=== PATIENT | female | born 1955 | race Caucasian/White ===

== ENCOUNTER 2020-01-18 11:40 | Emergency (ER) | payer OTHER ==
[~2020-01-18] VITALS: Ht 152.4 cm; Wt 79.4 kg
[2020-01-18] MEDS ORDERED: MUCINEX DM ER1 EAC1 PO (11:57)
[2020-01-18] MEDS ORDERED: DECADRON6 MG PO (11:57)
[2020-01-18] MEDS ORDERED: SYMBICORT 16010.2 GM IH (11:57)
[2020-01-18] MEDS ORDERED: VITAMIN C1000 MG PO (11:57)
[2020-01-18] MEDS ORDERED: VITAMIN D3 COM1 EACH PO (11:57)
[2020-01-18] MEDS ORDERED: PEPCID AC20 MG PO (11:57)
[2020-01-18] MEDS ORDERED: ZINC50 M1 PO (11:57)
[2020-01-18] MEDS ORDERED: TESSALON PERLE100 M1 PO (11:57)
[2020-01-18] MEDS ORDERED: SALINE NOSE SPR45 ML (12:01)
== END 2020-01-18 12:20 | disposition home or self-care (01) ==
LOC: ER
DX: U07.1 COVID-19 (principal)

== ENCOUNTER 2020-07-31 13:26 | Outpatient (CLI) | payer OTHER ==
[~2020-07-31 13:26] MED LIST: DECADRON6 MG PO; MUCINEX DM ER1 EAC1 PO; PEPCID AC20 MG PO; SALINE NOSE SPR45 ML; SYMBICORT 16010.2 GM IH; TESSALON PERLE100 M1 PO; VITAMIN C1000 MG PO; VITAMIN D3 COM1 EACH PO; ZINC50 M1 PO
== END 2020-07-31 13:41 | disposition home or self-care (01) ==
LOC: SONOGRAMA 13:26
PROVIDERS: ATTEND Specialist
DX: N85.01 Benign endometrial hyperplasia (principal); N95.1 Menopausal and female climacteric states

== ENCOUNTER 2020-10-07 06:00 | Day surgery (SDC) | payer OTHER ==
[2020-10-07] MEDS ORDERED: TYLENOL325 MG PO (11:08)
== END 2020-10-07 14:15 | disposition home or self-care (01) ==
LOC: CIR.AMB 06:00
PROVIDERS: ATTEND Obstetrics & Gynecology Gynecology
DX: C54.1 Malignant neoplasm of endometrium (principal); Z20.822 Contact with and (suspected) exposure to COVID-19